=== PATIENT | male | born 1985 | race Caucasian/White ===

== ENCOUNTER 2018-12-31 14:04 | Emergency (ER) | payer SELFPAY ==
[2018-12-31 14:41] LABS: BASOPHILS # (AUTO) 0.1 10^3/uL (0.0-0.1); BASOPHILS % (AUTO) 0.7 %; EOSINOPHILS # (AUTO) 0.5 10^3/uL (0.0-0.7); EOSINOPHILS % (AUTO) 4.7 %; HGB - HEMOGLOBIN 16.1 g/dL (14.0-18.0); LYMPHOCYTES % (AUTO) 30.1 %; MEAN CORPUSCULAR HEMOGLOBIN 30.7 pg (27.0-31.0); MEAN CORPUSCULAR HGB CONC 34.4 g/dL (32.0-36.0); MEAN CORPUSCULAR VOLUME 89.3 fL (80.0-94.0); MEAN PLATELET VOLUME 10.3 fL (7.4-11.4); MONOCYTES # (AUTO) 0.7 10^3/uL (0.0-1.0); MONOCYTES % (AUTO) 6.9 %; NEUTROPHILS # (AUTO) 5.8 10^3/uL (1.5-6.6); NEUTROPHILS % (AUTO) 57.1 %; PLT - PLATELET COUNT 217 10^3/uL (130-450); RED BLOOD COUNT 5.24 10^6/uL (4.70-6.10); WHITE BLOOD COUNT 10.1 x10^3/uL (4.8-10.8)
[2018-12-31 14:54] LABS: ALBUMIN 4.4 g/dL (3.2-5.5); ALBUMIN/GLOBULIN RATIO 1.2 (1.0-2.2); BILIRUBIN,TOTAL 1.4 mg/dL (0.2-1.0); CALCIUM 9.2 mg/dL (8.5-10.3); TOTAL PROTEIN 8.1 g/dL (6.7-8.2)
--- NOTE | 2018-12-31 15:06 | ED Physician Documentation ---
History of Present Illness - Stated complaint Stated Complaint: SOA - Chief complaint Chief Complaint: General - History obtained from History obtained from: Patient - History of Present Illness Timing: Other (33-year-old gentleman who basically as long as he can remember has episodes of difficulty with breathing and cough. On and off he has some chest tightness with it. He said this chest tightness in the lower left chest for the last 4 days. Is worse when he takes a deep breath. He also notes a lot of snoring at night and some episodes of apnea per the girlfriend. He is never been worked up by for sleep apnea and does not have primary care physician. He recently switched from tobacco to vaping. His cough is nonproductive. No pedal edema or calf pain.) Review of Systems Constitutional: denies: Fever, Chills Ears: reports: Reviewed and negative Throat: reports: Reviewed and negative Cardiac: reports: Chest pain / pressure. denies: Palpitations PD PAST MEDICAL HISTORY - Present Medications Home Medications: Ambulatory Orders Medication Instructions Recorded Confirmed RX: Albuterol Sulf [Ventolin Hfa 1 - 2 puffs INH Q4HR PRN #1 inhaler 12/31/18 Inhaler] RX: Azithromycin [Zithromax] 1 tab PO DAILY #6 tablet 12/31/18 RX: predniSONE [Deltasone] 60 mg PO DAILY 5 Days tablet 12/31/18 - Allergies Allergies/Adverse Reactions: Allergies Allergy/AdvReac Type Severity Reaction Status Date / Time No Known Drug Allergies Allergy Verified 12/31/18 14:22 PD ED PE NORMAL - Vitals Vital signs reviewed: Yes - General General: Alert and oriented X 3, No acute distress - HEENT HEENT: PERRL, EOMI - Neck Neck: Supple, no meningeal sign, No bony TTP - Cardiac Cardiac: RRR, No murmur - Respiratory Respiratory: No respiratory distress, Other (Rhonchorous at the bases, nonlabored) - Extremities Extremities: No edema, No calf tenderness / cord - Neuro Neuro: Alert and oriented X 3, Normal speech Results - Vitals Vitals: Vital Signs - 24 hr 12/31/18 12/31/18 14:17 15:31 Temperature 36.7 C Heart Rate 61 58 L Respiratory 19 21 Rate Blood Pressure 133/75 H 114/73 O2 Saturation 100 98 Oxygen O2 Source Room air - EKG (time done) 1426 Rate: Rate (enter#) (68) Rhythm: NSR [place]: Normal Intervals: Normal NM QRS: Normal Ischemia: ST elevation c/w repol Computer interpretation: Agree with computer - Labs Labs: Laboratory Tests 12/31/18 12/31/18 12/31/18 14:36 14:36 14:36 WBC 10.1 RBC 5.24 Hgb 16.1 Hct 46.8 MCV 89.3 MCH 30.7 MCHC 34.4 RDW 13.0 Plt Count 217 MPV 10.3 Neut # (Auto) 5.8 Lymph # (Auto) 3.0 [place] # (Auto) 0.7 Eos # (Auto) 0.5 Baso # (Auto) 0.1 Absolute Nucleated RBC 0.00 Nucleated RBC % 0.0 D-Dimer 238.8 Sodium 138 Potassium 4.0 Chloride 102 Carbon Dioxide 25 Anion Gap 11.0 BUN 15 Creatinine 1.0 Estimated GFR (MDRD) 86 L Glucose 92 Calcium 9.2 Total Bilirubin 1.4 H AST 26 ALT 39 Alkaline Phosphatase 62 Troponin I High Sens Total Protein 8.1 Albumin 4.4 Globulin 3.7 Albumin/Globulin Ratio 1.2 Lipase 28 12/31/18 14:36 WBC RBC Hgb Hct MCV MCH MCHC RDW Plt Count MPV Neut # (Auto) Lymph # (Auto) [place] # (Auto) Eos # (Auto) Baso # (Auto) Absolute Nucleated RBC Nucleated RBC % D-Dimer Sodium Potassium Chloride Carbon Dioxide Anion Gap BUN Creatinine Estimated GFR (MDRD) Glucose Calcium Total Bilirubin AST ALT Alkaline Phosphatase Troponin I High Sens < 2.3 L Total Protein Albumin Globulin Albumin/Globulin Ratio Lipase - Rads (name of study) 2v chest Radiology: EMP read contemporaneously (NAD) PD MEDICAL DECISION MAKING - ED course ED course: 33-year-old gentleman with what sounds like an exacerbation of chronic bronchitis. 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 He was advised to quit vaping. Given potential underlying lung disease he is treated with antibiotics for bronchitis. Departure - Departure Disposition: 01 Home, Self Care Clinical Impression: Bronchitis Condition: Good Instructions: ED Bronchitis Asthmatic Prescriptions: RX: Albuterol Sulf [Ventolin Hfa Inhaler] 1 - 2 puffs INH Q4HR PRN #1 inhaler PRN Reason: Shortness Of Air/Wheezing RX: Azithromycin [Zithromax] 1 tab PO DAILY #6 tablet RX: predniSONE [Deltasone] 60 mg PO DAILY 5 Days tablet Comments: As discussed, it is important to follow-up with a primary care physician for definitive diagnosis of what sounds like sleep apnea. He will need a referral for a sleep study. A few primary care physicians are listed on this form. Return for new worsening symptoms. Discharge Date/Time: 12/31/18 16:25
[2018-12-31] MEDS ORDERED: fentaNYL 100 MCG/2 ML VIAL IVP STA (15:16)
[2018-12-31 15:33] VITALS: BP 114/73
--- NOTE | 2018-12-31 16:22 | XRAY Report ---
Reason: chest pain, dyspnea Procedure Date: 12/31/2018 Accession Number: [id number] / [id number] Procedure: XR - Chest 2 View X-Ray CPT Code: 65555 FULL RESULT: EXAM: CHEST RADIOGRAPHY EXAM DATE: 12/31/2018 03:18 PM. CLINICAL HISTORY: Chest pain, dyspnea. COMPARISON: None. TECHNIQUE: 2 views. FINDINGS: Lungs/Pleura: No localized infiltrate, consolidation, effusion, or pneumothorax. Mediastinum: Heart and mediastinal contours are unremarkable. Upper lobe vessels not distended. Other: None. IMPRESSION: Normal 2-view chest radiography. RADIA
== END 2018-12-31 16:25 | disposition home or self-care (01) ==
LOC: ED 14:04
DX: J40 Bronchitis, not specified as acute or chronic (principal); F17.290 Nicotine dependence, other tobacco product, uncomplicated
CPT/HCPCS: 36415; 71046; 80053; 83690; 84484; 85025; 85379; 93005; 99284

== ENCOUNTER 2019-07-21 22:02 | Emergency (ER) | payer BC ==
--- NOTE | 2019-07-21 23:26 | ED Physician Documentation ---
History of Present Illness - Stated complaint Stated Complaint: REDDING/HEAD PRESSURE - Chief complaint Chief Complaint: Neuro - History obtained from History obtained from: Patient (Patient is a 33-year-old male presents with a chief complaint of headache that he has had off and on for the last 10 days. 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 He denies any visual loss or hearing loss he denies any trauma he describes a headache is gradual in onset and waxing and waning and describes as pressure in his bilateral frontal region and bilateral frontal sinuses without visual loss. He denies taking any chronic anticoagulants. Denies any personal family history of subarachnoid hemorrhage or cerebral aneurysm. He describes the headache is not the worst headache of his life not sudden in onset and not maximum in intensity.) Review of Systems Constitutional: reports: Reviewed and negative Eyes: reports: Reviewed and negative Ears: reports: Reviewed and negative Nose: reports: Sinus pressure / pain Throat: reports: Reviewed and negative Cardiac: reports: Reviewed and negative Respiratory: reports: Reviewed and negative GI: reports: Reviewed and negative : reports: Reviewed and negative Skin: reports: Reviewed and negative Musculoskeletal: reports: Reviewed and negative Neurologic: reports: Headache Psychiatric: reports: Reviewed and negative Endocrine: reports: Reviewed and negative Immunocompromised: reports: Reviewed and negative PD PAST MEDICAL HISTORY - Past Medical History Past Medical History: No Cardiovascular: None Respiratory: None Neuro: None Endocrine/Autoimmune: None GI: None : None HEENT: None Psych: None Musculoskeletal: None Derm: None - Past Surgical History Past Surgical History: Yes General: Other Ortho: Other - Present Medications Home Medications: Ambulatory Orders Medication Instructions Recorded Confirmed Albuterol Sulf [Ventolin Hfa 1 - 2 puffs INH Q4HR PRN #1 inhaler 12/31/18 Inhaler] Azithromycin [Zithromax] 1 tab PO DAILY #6 tablet 12/31/18 predniSONE [Deltasone] 60 mg PO DAILY 5 Days tablet 12/31/18 Amox/Clav 875/125 [Augmentin 1 tab PO Q12H 7 Days #14 tablet 07/22/19 875/125] - Allergies Allergies/Adverse Reactions: Allergies Allergy/AdvReac Type Severity Reaction Status Date / Time No Known Drug Allergies Allergy Verified 07/21/19 22:08 - Social History Does the pt smoke?: Yes Smoking Status: Current every day smoker Does the pt drink ETOH?: Yes Does the pt have substance abuse?: No - Immunizations Immunizations are current?: No - POLST Patient has POLST: No PD ED PE NORMAL - Vitals Vital signs reviewed: Yes - General General: Alert and oriented X 3, No acute distress, Well developed/nourished - HEENT HEENT: Atraumatic, PERRL, EOMI, Ears normal, Moist mucous membranes, Pharynx benign, Dentition benign, Other (TTP over b/l frontal and maxillary sinuses, clear post nasal drip present.) - Neck Neck: Supple, no meningeal sign - Cardiac Cardiac: RRR, No murmur, Strong equal pulses - Respiratory Respiratory: No respiratory distress, Clear bilaterally - Abdomen Abdomen: Normal bowel sounds, Soft, Non tender, Non distended, No organomegaly - Back Back: No CVA TTP, No spinal TTP - Derm Derm: Normal color, Warm and dry, No rash - Extremities Extremities: No deformity, No tenderness to palpate, Normal ROM s pain, No edema, No calf tenderness / cord - Neuro Neuro: Alert and oriented X 3, stitch bonding machine tender 2-12 intact, No motor deficit, No sensory deficit, Normal speech - Psych Psych: Normal mood, Normal affect Results - Vitals Vitals: Vital Signs - 24 hr 07/21/19 07/22/19 07/22/19 22:08 00:16 00:57 Temperature 36.5 C Heart Rate 72 82 71 Respiratory 14 17 17 Rate Blood Pressure 138/74 H 124/75 118/74 O2 Saturation 98 98 95 07/22/19 01:36 Temperature Heart Rate Respiratory 17 Rate Blood Pressure O2 Saturation Oxygen O2 Source Room air - Labs Labs: Laboratory Tests 07/21/19 07/22/19 07/22/19 23:43 00:05 00:05 WBC 11.3 H RBC 5.13 Hgb 15.0 Hct 45.2 MCV 88.1 MCH 29.2 MCHC 33.2 RDW 12.5 Plt Count 250 MPV 10.8 Neut # (Auto) 6.8 H Lymph # (Auto) 3.5 [place] # (Auto) 0.5 Eos # (Auto) 0.5 Baso # (Auto) 0.1 Absolute Nucleated RBC 0.00 Nucleated RBC % 0.0 PT INR APTT Sodium 136 Potassium 3.7 Chloride 105 Carbon Dioxide 23 Anion Gap 8.0 BUN 16 Creatinine 0.9 Estimated GFR (MDRD) 97 Glucose 83 Calcium 8.7 Total Bilirubin 0.8 AST 23 ALT 35 Alkaline Phosphatase 56 Total Creatine Kinase 57 Total Protein 7.3 Albumin 3.9 Globulin 3.4 Albumin/Globulin Ratio 1.1 Lipase 33 Urine Color YELLOW Urine Clarity CLEAR Urine pH 7.0 Ur Specific [place] 1.020 Urine Protein NEGATIVE Urine Glucose (UA) NEGATIVE Urine Ketones NEGATIVE Urine Occult Blood NEGATIVE Urine Nitrite NEGATIVE Urine Bilirubin NEGATIVE Urine Urobilinogen 0.2 (NORMAL) Ur Leukocyte Esterase NEGATIVE Ur Microscopic Review NOT INDICATED Urine Culture Comments NOT INDICATED 07/22/19 00:35 WBC RBC Hgb Hct MCV MCH MCHC RDW Plt Count MPV Neut # (Auto) Lymph # (Auto) [place] # (Auto) Eos # (Auto) Baso # (Auto) Absolute Nucleated RBC Nucleated RBC % PT 12.3 INR 1.1 APTT 30.3 Sodium Potassium Chloride Carbon Dioxide Anion Gap BUN Creatinine Estimated GFR (MDRD) Glucose Calcium Total Bilirubin AST ALT Alkaline Phosphatase Total Creatine Kinase Total Protein Albumin Globulin Albumin/Globulin Ratio Lipase Urine Color Urine Clarity Urine pH Ur Specific [place] Urine Protein Urine Glucose (UA) Urine Ketones Urine Occult Blood Urine Nitrite Urine Bilirubin Urine Urobilinogen Ur Leukocyte Esterase Ur Microscopic Review Urine Culture Comments PD MEDICAL DECISION MAKING - ED course Complexity details: re-evaluated patient (patients headache resolved, CTH negative, CT Face shows pansinusitis, will start on augmentin. discussed the possibility of SAH and the need for LP, patient has had symptoms for 7-10 days now, symptoms have resolved, offered LP to look for xanthochromia, patient refusing at this time, he has Medical decision-making capability and capacity and accepts allPossible adverse outcomes such as or disability.), d/w patient, other (hx and pe are consistent with migraine headache. no red flags on hx and exam to suggest SAH, dural venous sinus thrombosis. no signs of meningitis currently.) Departure - Departure Disposition: 01 Home, Self Care Clinical Impression: Headache Qualifiers: Headache type: unspecified Headache chronicity pattern: unspecified pattern Intractability: not intractable Qualified Code(s): R51 - Headache Sinusitis Qualifiers: Sinusitis location: other Chronicity: unspecified Qualified Code(s): J32.9 - Chronic sinusitis, unspecified Condition: Good Instructions: ED Headache Sinus, ED Sinusitis Abx Tx Follow-Up: YOUR, DOCTOR [Other] - 07/22/19 Prescriptions: Amox/Clav 875/125 [Augmentin 875/125] 1 tab PO Q12H 7 Days #14 tablet Discharge Date/Time: 07/22/19 01:36
[2019-07-21] MEDS ORDERED: SODIUM CHLORIDE 0.9% 1,000 ML IV ONE (23:36)
[2019-07-21] MEDS ORDERED: diphenhydrAMINE INJ 50 MG/ML VIAL IVP STA (23:36)
[2019-07-21] MEDS ORDERED: PROCHLORPERAZINE 10 MG/2 ML VIAL IVP STA (23:36)
[2019-07-22 00:01] LABS: BILIRUBIN,URINE NEGATIVE (NEGATIVE); GLUCOSE, URINE (UA) NEGATIVE (NEGATIVE); KETONES,URINE (UA) NEGATIVE (NEGATIVE); LEUKOCYTE ESTERASE, URINE NEGATIVE (NEGATIVE); NITRITE,URINE NEGATIVE (NEGATIVE); OCCULT BLOOD,URINE NEGATIVE (NEGATIVE); PROTEIN,URINE NEGATIVE (NEGATIVE); UROBILINOGEN,URINE 0.2 (NORMAL) E.U./dL (NORMAL)
[2019-07-22 00:06] LABS: CLARITY,URINE CLEAR (CLEAR)
--- NOTE | 2019-07-22 00:22 | CT Report ---
Reason: headache Procedure Date: 07/22/2019 Accession Number: [id number] / [id number] Procedure: CT - HEAD WO CPT Code: Final Report FULL RESULT: EXAM: CT HEAD EXAM DATE: 07/22/2019 12:07 AM. CLINICAL HISTORY: Headache. COMPARISON: None. TECHNIQUE: Multiaxial CT images were obtained from the foramen magnum to the vertex. Reformats: Sagittal and coronal. IV contrast: None. In accordance with CT protocol optimization, one or more of the following dose reduction techniques were utilized for this exam: automated exposure control, adjustment of mA and/or KV based on patient size, or use of iterative reconstructive technique. FINDINGS: Parenchyma: No intraparenchymal hemorrhage. No evidence of mass, midline shift or CT findings of acute territorial infarction. Whiteside-white differentiation is distinct. Extraaxial Spaces: No subdural or epidural collections identified. Ventricles: No hydrocephalus Sinuses: Imaged paranasal sinuses, orbits, and mastoids show no significant abnormality. Bones: No evidence of acute fracture or calvarial defect. Other: None. IMPRESSION: No acute intracranial abnormalities. RADIA
[2019-07-22 00:25] LABS: BASOPHILS # (AUTO) 0.1 10^3/uL (0.0-0.1); BASOPHILS % (AUTO) 0.6 %; EOSINOPHILS # (AUTO) 0.5 10^3/uL (0.0-0.7); LYMPHOCYTES # (AUTO) 3.5 10^3/uL (1.5-3.5); LYMPHOCYTES % (AUTO) 30.5 %; MEAN CORPUSCULAR HEMOGLOBIN 29.2 pg (27.0-31.0); MEAN CORPUSCULAR HGB CONC 33.2 g/dL (32.0-36.0); MEAN CORPUSCULAR VOLUME 88.1 fL (80.0-94.0); MEAN PLATELET VOLUME 10.8 fL (7.4-11.4); MONOCYTES # (AUTO) 0.5 10^3/uL (0.0-1.0); MONOCYTES % (AUTO) 4.4 %; NEUTROPHILS # (AUTO) 6.8 10^3/uL (1.5-6.6); NEUTROPHILS % (AUTO) 60.1 %; PLT - PLATELET COUNT 250 10^3/uL (130-450); RED BLOOD COUNT 5.13 10^6/uL (4.70-6.10); RED CELL DISTRIBUTION WIDTH 12.5 % (12.0-15.0); WHITE BLOOD COUNT 11.3 x10^3/uL (4.8-10.8)
--- NOTE | 2019-07-22 00:40 | CT Report ---
Reason: facial pain and pressure Procedure Date: 07/22/2019 Accession Number: [id number] / [id number] Procedure: CT - MAXILLOFACIAL WO CPT Code: Final Report FULL RESULT: EXAM: CT MAXILLOFACIAL WITHOUT CONTRAST EXAM DATE: 07/22/2019 12:07 AM. CLINICAL HISTORY: Facial pain and pressure. Facial pressure and pain for 10 days. COMPARISONS: None. TECHNIQUE: Thin-section axial images were acquired of the face without contrast. Post-processing: Coronal and sagittal reformats. Other: None. In accordance with CT protocol optimization, one or more of the following dose reduction techniques were utilized for this exam: automated exposure control, adjustment of mA and/or KV based on patient size, or use of iterative reconstructive technique. FINDINGS: Soft Tissue: There is no significant soft tissue swelling demonstrated. There is abnormal increased soft tissue density and lucent abnormality within the maxilla, at the tip of the right maxillary incisor (image 76 series 3). Orbits: Symmetric and unremarkable. Bones: No fracture or bone lesion. Temporomandibular Joints: The temporomandibular joints are symmetric and normally located. Sinuses: No gas/fluid levels demonstrated. There is a mucous retention cyst or polyp in the right maxillary sinus. Mild right maxillary sinus mucosal thickening. Similar small mucous retention cyst or polyp within the left frontal sinus. Mild ethmoid air cell mucosal thickening. Small dependent abnormality within the left sphenoid sinus. Other: None. IMPRESSION: 1. No acute bone abnormality demonstrated. 2. Abnormal bony lucency abnormality near the apex of the right maxillary incisor. This could be due to periodontal disease. 3. Mild severity pansinus disease. RADIA
[2019-07-22 00:52] LABS: INR 1.1 (0.8-1.2); PT - PROTHROMBIN TIME 12.3 secs (9.9-12.6)
[2019-07-22 00:55] LABS: ALBUMIN 3.9 g/dL (3.2-5.5); ALBUMIN/GLOBULIN RATIO 1.1 (1.0-2.2); BILIRUBIN,TOTAL 0.8 mg/dL (0.2-1.0); CALCIUM 8.7 mg/dL (8.5-10.3); CREATININE 0.9 mg/dL (0.6-1.2); TOTAL PROTEIN 7.3 g/dL (6.7-8.2)
[2019-07-22 00:58] VITALS: BP 118/74
[2019-07-22 00:59] LABS: PARTIAL THROMBOPLASTIN TIME 30.3 secs (24.9-33.3)
== END 2019-07-22 01:36 | disposition home or self-care (01) ==
LOC: ED 22:02
DX: J32.9 Chronic sinusitis, unspecified (principal); F17.210 Nicotine dependence, cigarettes, uncomplicated
CPT/HCPCS: 36415; 70450; 70486; 80053; 81003; 82550; 83690; 85025; 85610; 85730; 96361; 96374; 96375; 99284; J1200; 81001; 87086

== ENCOUNTER 2020-11-17 13:47 | Outpatient (CLI) | payer BC ==
--- NOTE | 2020-11-17 14:23 | SLEEP CARE CONSULTATION ---
Information from patient questionnaire entered by Haley Flower. I have reviewed and concur with the information entered by Haley Flower. This document represents the service I personally performed and the decisions made by me, Torrie Ryan ARNP. History of Present Illness Service Date and Time: 11/17/2020 1347 Reason for Visit: New patient Chief Complaint: reports: Unrefreshed sleep, Snoring, Observed pauses in breathing, Fatigue Date of Onset: a year Usual bedtime: 6 am Time it takes to fall asleep: very quickly Snores at night: Yes Observed to quit breathing while asleep: Yes Sleeps alone due to snoring: No Number of times waking at night: 2-3 Reasons for waking at night: reports: Snoring, Gasping for air (1-2 times a while ago), Bathroom Toss, Turn, or Twitch while sleeping: No Recalls having dreams: No Usually gets out of bed at: 4 pm Feels refreshed in the morning: No Morning headache: No Sleepy or fatigued during the day: No Ever fallen asleep while driving: No (no drowsy driving) Takes day naps: No Dreams during day naps: No Prior sleep studies: No Additional HPI information: I had the pleasure of seeing ANGE GRANDE today regarding the possibility of him having a sleep disorder. His current complaints are unrefreshed sleep, fatigue and snoring. He states he snores very loudly. 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 He never feels refreshed when he wakes up in the morning. His fiance has seen him stop breathing during sleep and occasional gasp for air. He doesn't feel he is getting deep sleep. 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 - Parasomnia Symptoms Ever been unable to move upon waking from sleep: No Walks in sleep: No Talks in sleep: No Ever acted out dreams in sleep: No Ever felt weak in the knees when startled or emotional: No Bothered by creepy, crawly, restless sensations in legs: No Problems with memory or concentration: No Subjective Initial Adams Sleepiness Scale score: 3 (in 2020) Past Medical History Past Medical History: reports: Other (Bronchitis in the winter). 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 Patient is Single and lives in [place]. Have you smoked in the past 12 months: Yes (just cigarettes) Cigarettes per day (20/pack): 10 Years of smokin Smoking Pack Years: 10.0 Alcohol use: Yes Alcohol amount and frequency: a beer not very often; 6 drinks a year Caffeine use: Yes Caffeine amount and frequency: a [place] 5 days a week; 2 energy drinks a night when working Family History Family history of sleep disordered breathing: No (adopted) Allergies and Home Medications Drug allergies reviewed: Yes (NKDA) Home medication list reviewed: Yes (Vitamin D, B12, C, Zinc) Review of Systems Weight gain over past 5 years: 20 Cardiovascular: denies: high blood pressure Respiratory: reports: shortness of breath Gastrointestinal: reports: abdominal pain. denies: heartburn Neurological: denies: headaches, head trauma Psychiatric: denies: anxiety, depression Ear/Nose/Throat: reports: wisdom teeth removed. denies: injury to nose, tonsillectomy Endocrine: reports: sluggishness Physical Exam Blood Pressure: 133/81 Cuff size: wrist Heart Rate: 60 O2 Saturation: 98 Height: 5 ft 8 in Weight: 210 lb Body Mass Index: 31.9 BMI Classification: Obese Neck circumference: 16.25 (inches) Nostrils: partially obstructed Mouth and throat: narrow oropharynx Soft palate: long Hard palate: normal Uvula: long Uvula visualization: 50% Mallampati Class II Tongue: enlarged in size with teeth waggoner on lateral edges Tonsils: 1+ Neck: normal w/o lymphadenopathy or thyromegaly Heart: regular rate and rhythm Lungs: clear bilaterally Impression and Plan 1. Suspected Obstructive Sleep Apnea-Hypopnea Syndrome, as suggested by a history of loud and irregular snoring, observed cessation of breath while asleep, gasping or choking in sleep, and unrefreshed sleep. Narrow oropharynx and obesity are common predisposing factors for obstructive sleep apnea-hypopnea syndrome. I recommend proceeding to polysomnography to confirm the diagnosis and to assess severity. If the patient has significant sleep disordered breathing, a manual CPAP titration study will also be performed to find the optimal treatment pressure. I informed the patient of what the sleep studies involve and after some discussion, obtained agreement to proceed. The pathophysiology of obstructive sleep apnea-hypopnea syndrome was discussed with the patient and health risks of cardiovascular and cerebrovascular disease if not treated. AASM brochure for obstructive sleep apnea-hypopnea syndrome given and reviewed. Risks of drowsy driving discussed in detail and patient advised to avoid long distance driving and to puller out at the first sign of drowsiness. Patient agreed to plan. * Schedule polysomnography +- manual CPAP titration study and return in 1-2 weeks after the study to discuss result and initiate therapy. * Avoid long distance driving or driving when feeling sleepy. * Avoid alcohol, sedative and muscle relaxant around bedtime. * Attempt to lose weight. * Review instructions provided by trained office staff on how to prepare for the sleep study. * Return for follow-up after sleep study completed. Counseling Topics: Weight loss health impact Visit Type: In Office Time Spent with Patient (minutes): 30 Provider Statement: I spent 100% of the Face to Face Visit with the patient with greater than 50% spent counseling the patient and coordination of care.
[2020-11-17 14:24] VITALS: BP 133/81
== END 2020-11-17 13:48 | disposition home or self-care (01) ==
LOC: SC 13:47
PROVIDERS: ATTEND Nurse Practitioner Family
DX: R06.81 Apnea, not elsewhere classified (principal); G47.8 Other sleep disorders; R06.83 Snoring; F17.200 Nicotine dependence, unspecified, uncomplicated; E66.9 Obesity, unspecified; Z68.31 Body mass index [BMI] 31.0-31.9, adult
CPT/HCPCS: 99203; 99212

== ENCOUNTER 2020-12-28 16:20 | Outpatient (CLI) | payer BC | END 2020-12-28 16:21 | disposition home or self-care (01) | LOC: COV 16:20 | PROVIDERS: ATTEND Family Medicine | DX: U07.1 COVID-19 (principal) ==

== ENCOUNTER 2021-10-25 09:06 | Outpatient (CLI) | payer BC ==
[2021-10-25 09:43] VITALS: BP 149/92
--- NOTE | 2021-10-25 09:43 | SLEEP CARE CONSULTATION ---
Information from patient questionnaire entered by Ricardo Arellano MA. I have reviewed and concur with the information entered by Ricardo Arellano MA. This document represents the service I personally performed and the decisions made by me, Torrie Ryan ARNP. History of Present Illness Service Date and Time: 10/25/2021 0906 Reason for follow up: other (11 MONTH F/U FROM INITIAL APPT, NON CPAP, . RE ORDER STUDY? LAST SEEN 12/09/2020, ) Prior sleep studies: No HPI additional information: I had the pleasure of seeing ANGE GRANDE today regarding the possibility of him having a sleep disorder. He was last seen in this office in 11/2020 and a sleep study was ordered but not completed. He returns to the office today. His current complaints are unrefreshed sleep, snoring, observed pauses in breathing and fatigue. The patient tells me that he normally goes to bed around 9:00 pm, and it takes him approximately 30 minutes to fall asleep. He has been told that he snores loudly and irregularly at night. He has been observed to stop breathing in his sleep and gasping for air. His bed partner can still sleep in the same bed. He can recall waking up on the average of 2-3 times during the night. Most of the time he wakes up because of bathroom and baby care. He has not awakened for his own snoring but has woke up a few times having to gasp for air. There is not a lot of tossing and turning in his sleep. Generally there is no recollection of dreams. He usually wakes up at 0500 and does not feel refreshed. He usually does have a morning headache. During the day he does not feel sleepy and fatigued. He has never fallen asleep while driving nor has any accident due to sleepiness. He usually does not take naps during the day. There is rare somniloquy (sleep talking) but no somnambulism (sleep walking). He has never experienced sleep paralysis, cataplexy, or symptoms of restless leg syndrome. He denies having impaired concentration during the day. Sleep Study - Results Prior sleep studies: No Subjective Initial [place] Sleepiness Scale score: 3 (in 2020) Current [place] Sleepiness Scale score: 5 (10/25/2021) Allergies and Home Medications Home medication list reviewed: Yes (Albuterol inhaler, only daily prescription) Allergy and home medication list: Allergies No Known Drug Allergies Allergy (Verified 07/21/19 22:08) Currently taking a round of antibiotic and steroids for a "walking pneumonia" diagnosis. He has 4 more days of medication. Review of Systems Review of systems same as previous: No (walking pneumonia) Physical Exam Vital signs obtained and entered by: JEM HENRIQUEZ Blood Pressure: 149/92 (RESP 18, PULSE 83, LEFT) Heart Rate: 85 O2 Saturation: 97 Height: 5 ft 8 in Weight: 214 lb Body Mass Index: 32.5 BMI Classification: Obese Impression and Plan 1. Suspected Obstructive Sleep Apnea-Hypopnea Syndrome, as suggested by a history of loud and irregular snoring, observed cessation of breath while asleep, unrefreshed sleep, and excessive daytime sleepiness. Patient returns to office to reorder sleep study. I recommend proceeding to polysomnography to confirm the diagnosis and to assess severity. If the patient has significant sleep disordered breathing, a manual CPAP titration study will also be performed to find the optimal treatment pressure. I informed the patient of what the sleep studies involve and after some discussion, obtained agreement to proceed. The pathophysiology of obstructive sleep apnea-hypopnea syndrome was discussed with the patient and health risks of cardiovascular and cerebrovascular disease if not treated. Risks of drowsy driving discussed in detail and patient advised to avoid long distance driving and to fur puller at the first sign of drowsiness. Patient agreed to plan. * Schedule polysomnography * Avoid long distance driving or driving when feeling sleepy. * Avoid alcohol, sedative and muscle relaxant around bedtime. * Attempt to lose weight. * Review instructions provided by trained office staff on how to prepare for the sleep study. * Return for follow-up after sleep study completed. Counseling Topics: Weight loss health impact Visit Type: In Office Time Spent with Patient (minutes): 20 Provider Statement: I spent 100% of the Face to Face Visit with the patient with greater than 50% spent counseling the patient and coordination of care.
== END 2021-10-25 09:07 | disposition home or self-care (01) ==
LOC: SC 09:06
PROVIDERS: ATTEND Nurse Practitioner Family
DX: G47.10 Hypersomnia, unspecified (principal); R06.83 Snoring; G47.8 Other sleep disorders; R06.81 Apnea, not elsewhere classified; E66.9 Obesity, unspecified; Z68.32 Body mass index [BMI] 32.0-32.9, adult
CPT/HCPCS: 99212; 99213

== ENCOUNTER 2021-11-30 09:20 | Outpatient (CLI) | payer BC ==
[2021-11-30 10:41] VITALS: BP 139/90
--- NOTE | 2021-11-30 10:41 | SLEEP CARE CONSULTATION ---
Information from patient questionnaire entered by Ricardo Arellano MA. I have reviewed and concur with the information entered by Ricardo Arellano MA. This document represents the service I personally performed and the decisions made by , Torrie Ryan ARNP. History of Present Illness Service Date and Time: 11/30/2021 0920 Initial [place] Sleepiness Scale score: 3 (in 2020) Current [place]ley Sleepiness Scale score: 4 (11/30/21) Additional HPI information: ANGE GRANDE returns for follow up and results of the recently performed home sleep study. I explained the pathophysiology behind obstructive sleep apnea. We then spent quite a bit of time discussing different treatment options. For mild obstructive sleep apnea, surgery and oral appliance are alternatives to nasal CPAP therapy but in moderate or severe cases, nasal CPAP is the most effective and reliable treatment. Because apnea is primarily in supine position, then positional management therapy could be effective. Methods discussed such as positioning with pillows to prevent supine sleep. I reviewed the impact of weight changes on sleep apnea and strongly recommended losing weight. After some discussion, the patient opted to go with the nasal CPAP therapy. Nasal autoCPAP set at 4-15 cmH20 will be ordered with rationale explained. A manual titration study will be ordered if unable to find optimal pressure with office adjustments. I explained how CPAP machine works and what to expect when using the machine. Using CPAP every night in order to get used to it was emphasized. Patient advised to put CPAP mask on before getting into bed so as not to fall asleep without CPAP. To assist acclimation to CPAP use, it could also be used for a short time during day while reading or watching TV. The patient was instructed to call the CPAP supplier to discuss any mechanical problem that may occur. If the mask given is uncomfortable or is difficult to keep on through the night even with adjustment, contact the CPAP supplier as many will replace with anothe r mask style if notified before 30 days. If snoring or perceives is not getting enough air or too much air from the machine, notify this office. Patient does not drink alcohol. Patient was cautioned about risks of drowsy driving until sleepiness symptoms resolve. Patient denies drowsy driving. Sleep Study - Results Type of Sleep Study: Home sleep study (F/U HST, 11/15/21 [facility], POS) Prior sleep studies: No Polysomnography/Home Sleep Study results: Physician Impression: The quality of the study is good. The length of the study is adequate (> 240 minutes). Please also see the tabulated and graphic data. 1. Obstructive Sleep Apnea-Hypopnea (ICD-10 G47.33), moderate, with an AHI of 25.1/hr and nuria SaO2 of 77%. During the study, the patient had 115 apneas (114 obstructive, 0 central, 1 mixed) and 23 hypopneas. The longest episode lasted 71.0 seconds. The respiratory events occurred more frequently during supine sleep (supine AHI was 38.7 and non-supine, 18.56). 2. Hypoxemia (ICD-10 R09.02), moderate, with the lowest oxygen saturation of 77 % and 51.8 minutes with SaO2 under 90%. Baseline oxygen saturation was normal (Average oxygen saturation was 93%). Allergies and Home Medications Known drug allergies: No Drug allergies reviewed: Yes Home medication list reviewed: Yes (no changes) Allergy and home medication list: Allergies No Known Drug Allergies Allergy (Verified 07/21/19 22:08) Review of Systems Review of systems same as previous: Yes (no changes) Physical Exam Vital signs obtained and entered by: Ishan ARELLANO CMA AAINDIO Blood Pressure: 139/90 (RESP 18, PULSE 68, LEFT) Cuff size: wrist Heart Rate: 66 O2 Saturation: 98 (PAPER MASK) Height: 5 ft 8 in Weight: 214 lb (CLOTHES) Weight change since last visit: LOSE - Body Mass Index: 32.5 BMI Classification: Obese Impression and Plan 1. Obstructive Sleep Apnea-Hypopnea Syndrome, moderate, with lowest oxygen saturation of 77%. Obviously this is the cause of the patients symptoms of unrefreshed sleep, and excessive daytime sleepiness. As mentioned above, the patient will be started on nasal autoCPAP therapy with pressure set at 4-15 cmH2 O. Compliance guidelines also reviewed. A copy of compliance guidelines will be given for reference at check out. Because the apnea is more severe supine, I instructed to avoid sleeping supine using pillow positioning until able to start CPAP use. I advised patient to try to lose weight as this will help to reduce apneas and improve his overall health. He voiced understanding. 2. Hypoxemia, moderate, with the lowest oxygen saturation of 77 % and 51.8 minutes with SaO2 under 90%. His baseline oxygen saturation was normal with an average oxygen saturation of 93%. * Nasal auto CPAP therapy, pressure at 4-15 cm H2O. * Attempt to lose weight. * Avoid alcohol consumption near bedtime. * Avoid supine sleep until using CPAP. * The patient is again cautioned about driving until sleepiness completely resolves. * Return one month after CPAP obtained. I will assess response to therapy and compliance at that time. Counseling Topics: Spare mask, Weight loss health impact Visit Type: In Office Provider Statement: I spent 100% of the Face to Face Visit with the patient with greater than 50% spent counseling the patient and coordination of care.
== END 2021-11-30 09:21 | disposition home or self-care (01) ==
LOC: SC 09:20
PROVIDERS: ATTEND Nurse Practitioner Family
DX: G47.33 Obstructive sleep apnea (adult) (pediatric) (principal); E66.9 Obesity, unspecified; Z68.32 Body mass index [BMI] 32.0-32.9, adult
CPT/HCPCS: 99212; 99213

== ENCOUNTER 2022-03-15 01:16 | Emergency (ER) | payer BC ==
[2022-03-15 01:26] VITALS: BP 151/77
[2022-03-15] MEDS ORDERED: HYDROcod/ACET 5/325 Prepack 4 PO STA (01:34)
--- NOTE | 2022-03-15 01:45 | ED Physician Documentation ---
PD HPI UPPER EXT INJURY - Stated complaint Stated Complaint: FINGER INJ - Chief complaint Chief Complaint: Ext Problem - History obtained from History obtained from: Patient - Additonal information Additional information: Patient comes to the emergency department chief complaint of right middle fingertip pain after his daughter accidentally slammed the finger in a door. The patient states this happened about 4 hours ago but is just throbbing and he is having trouble sleeping. He states he goes a little bleeding from the skin just below the nail and has a small blood collection in the very proximal most aspect of his nailbed but states he can move the finger. He denies any other injuries or complaints. Review of Systems Ten Systems: 10 systems reviewed and negative Constitutional: reports: Reviewed and negative Eyes: reports: Reviewed and negative Ears: reports: Reviewed and negative Nose: reports: Reviewed and negative Throat: reports: Reviewed and negative Cardiac: reports: Reviewed and negative Respiratory: reports: Reviewed and negative GI: reports: Reviewed and negative : reports: Reviewed and negative Skin: reports: Reviewed and negative Musculoskeletal: reports: Extremity pain Neurologic: reports: Reviewed and negative Psychiatric: reports: Reviewed and negative Endocrine: reports: Reviewed and negative Immunocompromised: reports: Reviewed and negative PD PAST MEDICAL HISTORY - Past Medical History Past Medical History: No Cardiovascular: None Respiratory: None Neuro: None Endocrine/Autoimmune: None GI: None : None HEENT: None Psych: None Musculoskeletal: None Derm: None - Past Surgical History Past Surgical History: Yes General: Other Ortho: Other - Present Medications Home Medications: Ambulatory Orders Medication Instructions Recorded Confirmed HYDROcod/ACETAM 5/325 [[place] 5/325] 1 - 2 tablet PO Q6H PRN #14 tablet 03/15/22 - Allergies Allergies/Adverse Reactions: Allergies Allergy/AdvReac Type Severity Reaction Status Date / Time No Known Drug Allergies Allergy Verified 03/15/22 01:26 - Social History Does the pt smoke?: Yes Smoking Status: Current every day smoker Does the pt drink ETOH?: Yes Does the pt have substance abuse?: No - Immunizations Immunizations are current?: Yes - POLST Patient has POLST: No PD ED PE NORMAL - Vitals Vital signs reviewed: Yes - General General: Alert and oriented X 3, No acute distress, Well developed/nourished - HEENT HEENT: Atraumatic, EOMI, Moist mucous membranes - Neck Neck: Supple, no meningeal sign - Cardiac Cardiac: Strong equal pulses - Respiratory Respiratory: No respiratory distress - Derm Derm: Warm and dry, Other (Contusion at base of right middle finger nail over germinal matrix. Tiny subungual hematoma involving nail base. No compromise of the nail. No laceration. Tiny abrasion over affected skin.) - Extremities Extremities: No deformity, Other (Intact flexion and extension at right middle finger DIP joint to resistance.) - Neuro Neuro: Alert and oriented X 3 - Psych Psych: Normal mood, Normal affect Results - Vitals Vitals: Vital Signs - 24 hr 03/15/22 01:24 Temperature 36.8 C Heart Rate 65 Respiratory 18 Rate Blood Pressure 151/77 H O2 Saturation 98 Oxygen O2 Source Room air - Rads (name of study) X-ray right hand Radiology: Final report received, EMP read indepedently, See rad report (Negative) PD MEDICAL DECISION MAKING - ED course Complexity details: reviewed results, re-evaluated patient, considered differential, d/w patient ED course: I offered trephination to the patient, though I did advise him that since the subungual hematoma is so small it may not make much difference in his pain. The patient declined to have trephination done and stated he really just needed something for pain. His x-ray was negative. He was given a prepack of Vicodin since he is driven himself to the emergency department, and was also given a small prescription for Vicodin to have at home for the next few days. We have discussed other modalities of symptom management, as well as the usual indications for return. Departure - Departure Disposition: 01 Home, Self Care Clinical Impression: Crushing injury of right middle finger Qualifiers: Encounter type: initial encounter Qualified Code(s): S67.192A - Crushing injury of right middle finger, initial encounter Subungual hematoma of fingernail Qualifiers: Encounter type: initial encounter Qualified Code(s): S60.10XA - Contusion of unspecified finger with damage to nail, initial encounter Condition: Stable Instructions: ED Crush Injury Finger No Fx Prescriptions: HYDROcod/ACETAM 5/325 [[place] 5/325] 1 - 2 tablet PO Q6H PRN #14 tablet PRN Reason: Pain Comments: Your x-rays look good-no break in the bone. You have a very small blood collection under your fingernail, which you have opted not to have drained at this time. This is reasonable, since the small amount of blood in your fingernail is likely contributing only a small portion of the pain you are having. Most of the pain is most likely from just the tissue injury in general from being crushed. This will improve gradually over the next several days to week. You should try to avoid letting your hand hang down, and try to prop it up as often as you can. You may also apply an ice pack, as needed. You have been given a prepack for some pain medication here in the emergency department, and [facility]. You may take the next day off of work to let your finger settle down a bit, if you wish. Forms: Activity restrictions Discharge Date/Time: 03/15/22 01:57
--- NOTE | 2022-03-15 02:03 | XRAY Report ---
PROCEDURE: Hand 3 View RT INDICATIONS: R middle finger crush inj TECHNIQUE: 3 views of the hand acquired. COMPARISON: None. FINDINGS: Bones: No fractures or dislocations. No suspicious bony lesions. Soft tissues: There is mild soft tissue swelling of the third digit distally. No suspicious soft tis steven calcifications. IMPRESSION: 1. No fracture or dislocation. Reviewed by: Anthony Vasques MD on 03/15/2022 2:02 AM PDT Approved by: Anthony Vasques MD on 03/15/2022 2:02 AM PDT Station ID: [id number]
== END 2022-03-15 01:57 | disposition home or self-care (01) ==
LOC: ED 01:16
DX: S67.192A Crushing injury of right middle finger, initial encounter (principal); X58.XXXA Exposure to other specified factors, initial encounter; F17.200 Nicotine dependence, unspecified, uncomplicated
CPT/HCPCS: 99283; 99284

== ENCOUNTER 2022-03-30 18:48 | Emergency (ER) | payer BC ==
[2022-03-30] MEDS ORDERED: AMOX/CLAV 875 MG/125 MG TABLET PO STA (20:29)
[2022-03-30] MEDS ORDERED: guaiFENesin/DEXTROMETHORPHAN 10 ML UDC PO STA (20:29)
--- NOTE | 2022-03-30 20:29 | ED Physician Documentation ---
PD HPI URI - Stated complaint Stated Complaint: FEVER, COUGH, EAR PX - Chief complaint Chief Complaint: Resp - History obtained from History obtained from: Patient - Additional information Additional information: Patient is a 36-year-old male with a history of asthma presenting for evaluation of 10 days of dry cough, congestion. His and daughter are here with similar symptoms and he has had another child at home who recently recovered from a viral infection. Patient reports today his right ear has been hurting and he is having difficulty hearing out of it. He denies chest pain or difficul ty breathing. He continues to smoke cigarettes. He has been using his inhaler. He has been tolerating p.o. without any difficulty. He denies abdominal discomfort. Review of Systems Constitutional: denies: Fever Ears: reports: Ear pain Nose: reports: Congestion Cardiac: denies: Chest pain / pressure Respiratory: reports: Cough. denies: Dyspnea GI: denies: Abdominal Pain, Vomiting Musculoskeletal: denies: Back pain Neurologic: denies: Headache PD PAST MEDICAL HISTORY - Past Medical History Cardiovascular: None Respiratory: None Neuro: None Endocrine/Autoimmune: None GI: None : None HEENT: None Psych: None Musculoskeletal: None Derm: None - Past Surgical History Past Surgical History: Yes General: Other Ortho: Other - Present Medications Home Medications: Ambulatory Orders Medication Instructions Recorded Confirmed HYDROcod/ACETAM 5/325 [[place] 5/325] 1 - 2 tablet PO Q6H PRN #14 tablet 03/15/22 Amox/Clav 875/125 [Augmentin] 1 each PO Q12H #20 tablet 03/30/22 guaiFENesin/DEXTROMETHORPHAN 10 ml PO Q6H PRN #120 ml 03/30/22 [Robitussin Dm] - Allergies Allergies/Adverse Reactions: Allergies Allergy/AdvReac Type Severity Reaction Status Date / Time No Known Drug Allergies Allergy Verified 03/30/22 19:07 - Social History Does the pt smoke?: Yes Smoking Status: Current every day smoker Does the pt drink ETOH?: Yes Does the pt have substance abuse?: No - Immunizations Immunizations are current?: Yes - POLST Patient has POLST: No PD ED PE NORMAL - General General: Alert and oriented X 3, No acute distress, Well developed/nourished - HEENT HEENT: Atraumatic, Moist mucous membranes, Pharynx benign. No: Ears normal (Right TM is dull, erythematous, bulging, loss of landmarks, left TM is normal) - Neck Neck: Supple, no meningeal sign - Cardiac Cardiac: RRR, Strong equal pulses - Respiratory Respiratory: No respiratory distress, Clear bilaterally - Abdomen Abdomen: Soft, Non tender - Derm Derm: Warm and dry - Extremities Extremities: No edema - Neuro Neuro: Normal speech Results - Vitals Vitals: Vital Signs - 24 hr 03/30/22 03/30/22 19:03 20:46 Temperature 36.6 C 36.5 C Heart Rate 85 80 Respiratory 16 16 Rate Blood Pressure 142/61 H 130/60 O2 Saturation 99 99 Oxygen O2 Source Room air PD MEDICAL DECISION MAKING - ED course ED course: Patient is a 36-year-old male presenting with URI symptoms for 10 days. He is here with 2 other family members with similar symptoms. His vital signs are stable and his lung sounds are clear with no signs of labored breathing. He does have exam findings to suggest acute otitis media to the right ear. I will start him on an antibiotic.I did offer a respiratory panel and encouraged that he should have a COVID test. Patient declined having it done here as he has test at home. He is advised on concerning symptoms to return for. Departure - Departure Disposition: 01 Home, Self Care Clinical Impression: Right otitis media, URI (upper respiratory infection) Condition: Stable Instructions: ED Otitis Media Acute Adult, ED Viral Syndrome Prescriptions: Amox/Clav 875/125 [Augmentin] 1 each PO Q12H #20 tablet guaiFENesin/DEXTROMETHORPHAN [Robitussin Dm] 10 ml PO Q6H PRN #120 ml PRN Reason: Cough Comments: You have an ear infection And I have started you On an antibiotic And sent this prescription to [facility].I would recommend taking a COVID test at home as you have opted not to have one done here. Please continue with acetaminophen or ibuprofen as needed for fevers or pains and Plenty of hydration and rest. If you have any worsening symptoms such as labored breathing please consider return to the ER. Discharge Date/Time: 03/30/22 20:46
[2022-03-30 20:48] VITALS: BP 130/60
== END 2022-03-30 20:46 | disposition home or self-care (01) ==
LOC: ED 18:48
DX: H66.91 Otitis media, unspecified, right ear (principal); J06.9 Acute upper respiratory infection, unspecified; J45.909 Unspecified asthma, uncomplicated; Z79.899 Other long term (current) drug therapy; F17.210 Nicotine dependence, cigarettes, uncomplicated
CPT/HCPCS: 99282; 99283; A9270

== ENCOUNTER 2023-01-30 09:07 | Outpatient (CLI) | payer BC | END 2023-01-30 09:08 | disposition home or self-care (01) | LOC: RT 09:07 | PROVIDERS: ATTEND Student in an Organized Health Care Education/Training Program | DX: R06.02 Shortness of breath (principal) | CPT/HCPCS: 94010; 94727; 94729 ==